=== PATIENT | female | born 2005 | race Caucasian/White ===

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

== ENCOUNTER → 2025-03-27 10:12 | Outpatient (BNVA) | payer OTHER, SELFPAY | PROVIDERS: PCP Family Medicine; Visit Provider Family Medicine | DX: Z00.00 Encounter for general adult medical examination without abnormal findings (principal) | CPT/HCPCS: 80053; 80061; 84443; 85025 ==

== ENCOUNTER 2025-04-10 06:12 | Outpatient (CLI) | payer OTHER, SELFPAY ==
--- NOTE | 2025-04-10 06:30 | US_ITS ---
WS: [id number] Gallbladder and right upper quadrant ultrasound, 04/10/2025 Clinical Data: elevated ALT, abnormal bowel movements Comparison: None. Findings: The gallbladder shows no sludge or stone. The wall measures 0.2 cm with no pericholecystic fluid. The common bile duct is 0.3 cm and there are no intrahepatic ductal abnormalities. Liver shows no cysts, masses or dilated intrahepatic ducts. Liver parenchyma shows normal echotexture. The liver measures 13.6 cm. The portal vein shows hepatopetal flow. The pancreas is not obscured by overlying bowel gas and no cyst, pseudocyst, or evidence of pancreatitis is noted. Right kidney measures 10.0 cm and no cyst, masses or hydronephrosis can be seen. The aorta and inferior vena cava show no vascular abnormalities. US/US abdomen limited [id number] Impression: Negative gallbladder and right upper quadrant ultrasound.
== END 2025-04-10 06:13 | disposition home or self-care (01) ==
LOC: RAD 06:14
PROVIDERS: PCP Family Medicine; Visit Provider Family Medicine
DX: R74.8 Abnormal levels of other serum enzymes (principal); K58.0 Irritable bowel syndrome with diarrhea
CPT/HCPCS: 76705